=== PATIENT | female | born 1970 | race Caucasian/White ===

== ENCOUNTER → 2023-11-04 | Outpatient (REF) | LOC: M EMP 11:58 → M LAB 11:58 | PROVIDERS: ATTEND Family Medicine | DX: Z02.1 Encounter for pre-employment examination (principal) ==

== ENCOUNTER 2023-12-14 18:55 | Emergency (ER) | payer OTHER ==
[~2023-12-14] VITALS: Ht 157.5 cm; Wt 92.3 kg
[2023-12-15] MEDS ORDERED: IBUP-1022 PO (01:11)
[2023-12-15 01:30] VITALS: BP 167/91; TEMP 97.4; O2SAT 97
[2023-12-15] MEDS: IBUPROFEN 600MG TAB PO ONE (01:33)
== END 2023-12-15 01:55 | disposition home or self-care (01) ==
LOC: M ED 18:55
DX: S93.601A Unspecified sprain of right foot, initial encounter (principal); X58.XXXA Exposure to other specified factors, initial encounter; Y92.009 Unspecified place in unspecified non-institutional (private) residence as the place of occurrence of the external cause; Y93.9 Activity, unspecified; Y99.9 Unspecified external cause status; Z88.8 Allergy status to other drugs, medicaments and biological substances